=== PATIENT | female | born 2005 | race Caucasian/White ===

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

== ENCOUNTER 2023-10-28 13:41 | Emergency (ER) | payer SELFPAY ==
[2023-10-28 15:15] LABS: CORONAVIRUS COVID-19 NAA POSITIVE (NEGATIVE); INFLUENZA A NAA NEGATIVE (NEGATIVE); RESPIRATORY SYNCYTIAL VIR NAA NEGATIVE (NEGATIVE)
[2023-10-28] MEDS: Ketorolac 30 MG/ML SDV IM ONE (15:40)
== END 2023-10-28 15:48 | disposition home or self-care (01) ==
LOC: JD.ED 13:41
DX: U07.1 COVID-19 (principal); B09 Unspecified viral infection characterized by skin and mucous membrane lesions; F17.210 Nicotine dependence, cigarettes, uncomplicated
CPT/HCPCS: 0241U; 96372; 99284; J1885; 99283

== ENCOUNTER 2024-07-08 16:32 | Emergency (ER) | payer MEDICAID ==
[2024-07-08] MEDS: Ibuprofen 600 MG Tab PO ONE (19:54)
== END 2024-07-08 19:56 | disposition home or self-care (01) ==
LOC: JD.ED 16:32
DX: J98.9 Respiratory disorder, unspecified (principal); F17.210 Nicotine dependence, cigarettes, uncomplicated
CPT/HCPCS: 87428; 99284; A9270; 99283

== ENCOUNTER 2024-07-26 05:31 | Emergency (ER) | payer SELFPAY ==
[2024-07-26 05:57] LABS: BASOPHILS ABSOLUTE AUTO 0.1 K/mm3 (0.0-0.2); BASOPHILS PERCENT AUTO 0.3 % (0.0-1.0); EOSINOPHILS PERCENT AUTO 0.2 % (0.0-6.0); HEMATOCRIT 42.7 % (37.0-47.0); HEMOGLOBIN 14.3 gm/dl (12.0-16.0); IMMATURE GRAN ABSOLUTE AUTO 0.06 K/mm3 (0.00-0.05); IMMATURE GRAN PERCENT AUTO 0.4 % (0.0-0.4); LYMPHOCYTES ABSOLUTE AUTO 1.5 K/mm3 (1.0-4.8); LYMPHOCYTES PERCENT AUTO 9.6 % (24.0-44.0); MEAN CORPUSCULAR HEMOGLOBIN 30.4 pg (28.0-32.0); MEAN CORPUSCULAR HGB CONC 33.5 g/dl (32.0-36.0); MEAN CORPUSCULAR VOLUME 90.9 fl (83.0-99.0); MEAN PLATELET VOLUME 9.4 fl (9.4-12.3); MONOCYTES ABSOLUTE AUTO 0.4 K/mm3 (0.0-0.8); MONOCYTES PERCENT AUTO 2.5 % (0.0-8.0); NEUTROPHILS ABSOLUTE AUTO 13.4 K/mm3 (1.8-7.7); PLATELET COUNT,PLT 247 K/mm3 (150-400); WHITE BLOOD CELL COUNT,WBC 15.35 K/mm3 (3.9-11.3)
[2024-07-26 06:24] LABS: A/G RATIO 1.1 (1-2); ALBUMIN 3.9 g/dl (3.4-5.0); ANION GAP 14.6 (5-15); BILIRUBIN TOTAL 0.2 mg/dL (0.2-1.0); BUN/CREATININE RATIO 8.3 (14-18); CALCIUM 8.2 mg/dL (8.5-10.1); CREATININE 0.6 mg/dL (0.55-1.02); EST CRCL DRUG DOSING (CG) 103.02 mL/min; ETHANOL BLOOD MEDICAL 0.15 gm% (0.00); POTASSIUM,K 3.6 mEq/L (3.5-5.1); PROTEIN TOTAL,TP 7.5 g/dl (6.4-8.2)
== END 2024-07-26 07:42 | disposition home or self-care (01) ==
LOC: JD.ED 05:31
DX: F10.120 Alcohol abuse with intoxication, uncomplicated (principal); F17.210 Nicotine dependence, cigarettes, uncomplicated; Z86.16 Personal history of COVID-19; Y90.6 Blood alcohol level of 120-199 mg/100 ml
CPT/HCPCS: 36415; 80053; 80307; 84703; 85025; 93005; 99284

== ENCOUNTER 2024-09-01 18:48 | Emergency (ER) | payer SELFPAY | END 2024-09-01 19:13 | disposition left against medical advice (07) | LOC: JD.ED 18:48 | DX: Z53.21 Procedure and treatment not carried out due to patient leaving prior to being seen by health care provider (principal) ==

== ENCOUNTER 2024-09-30 17:39 | Emergency (ER) | payer MEDICAID ==
[2024-09-30] MEDS: Ketorolac 60 MG/2 ML SDV IM ONE (18:30)
[2024-09-30 18:34] LABS: BUPRENORPHINE SCREEN,URINE NEGATIVE (CUTOFF=10); METHADONE SCREEN, URINE NEGATIVE (CUTOFF=200); METHAMPHETAMINES SCREEN, URINE NEGATIVE (CUTOFF=500); OXYCODONE SCREEN,URINE NEGATIVE (CUT0FF=100); THC SCREEN,URINE 20 NG/ML PRESUMPTIVE POSITIVE (CUTOFF=50)
[2024-09-30 18:43] LABS: AMPHETAMINES SCREEN, URINE NEGATIVE (CUTOFF=500)
== END 2024-09-30 19:20 | disposition home or self-care (01) ==
LOC: JD.ED 17:39
DX: U07.1 COVID-19 (principal); S10.93XA Contusion of unspecified part of neck, initial encounter; G44.099 Other trigeminal autonomic cephalgias (TAC), not intractable; Z86.16 Personal history of COVID-19; Z88.5 Allergy status to narcotic agent; X58.XXXA Exposure to other specified factors, initial encounter
CPT/HCPCS: 70450; 70490; 80306; 81025; 96372; 99285; A9270; J1885

== ENCOUNTER 2024-10-01 18:24 | Emergency (ER) | payer MEDICAID | END 2024-10-01 18:47 | disposition home or self-care (01) | LOC: JD.ED 18:24 | DX: U07.1 COVID-19 (principal); Z88.5 Allergy status to narcotic agent; Z86.16 Personal history of COVID-19 | CPT/HCPCS: 99283 ==